=== PATIENT | female | born 1985 | race Caucasian/White ===

== ENCOUNTER 2018-12-06 10:34 | Emergency (ER) | payer OTHER ==
[2018-12-06] MEDS ORDERED: HYDROCODONE/APAP 5/325 MG TAB ONE (11:19)
[2018-12-06] MEDS ORDERED: IBUPROFEN 200 MG TAB PO ONE (11:20)
[2018-12-06] MEDS ORDERED: IBUPROFEN 400 MG TAB ONE (11:20)
--- NOTE | 2018-12-06 12:02 | RAD REPORT ---
EXAM DESCRIPTION: RAD - Foot Right 3 View - 12/06/2018 11:25 am CLINICAL HISTORY: Twisting injury, foot pain COMPARISON: None. FINDINGS: Oblique fracture is present through the distal shaft fifth metatarsal. Articular surface o f the fifth metatarsal head is not involved. There is minimal distraction but no measurable angulatio n deformity. No other fracture changes seen. No other acute bone or joint finding. Soft tissue swelling is present distal lateral right foot. IMPRESSION: Minimally displaced, nonangulated distal right fifth metatarsal fracture.
--- NOTE | 2018-12-06 12:02 | RAD REPORT ---
EXAM DESCRIPTION: RAD - Ankle Right 3 View - 12/06/2018 11:28 am CLINICAL HISTORY: Foot and ankle pain, twisting injury COMPARISON: None. FINDINGS: No fracture, dislocation or periosteal reaction. No joint effusion seen. No joint space na rrowing. No significant soft tissue finding. Fifth metatarsal fracture is separately detailed. IMPRESSION: Negative right ankle
--- NOTE | 2018-12-06 12:03 | RAD REPORT ---
EXAM DESCRIPTION: RAD - Ankle Left 3 View - 12/06/2018 11:29 am CLINICAL HISTORY: Twisting injury, ankle pain COMPARISON: None. FINDINGS: No fracture, dislocation or periosteal reaction. No joint effusion seen. No joint space na rrowing. No soft tissue abnormality. IMPRESSION: Negative left ankle for fracture or other acute finding.
--- NOTE | 2018-12-06 14:19 | EDPHYS ---
Physician Documentation [facility] Name: Toño Sheffield Age: 33 yrs Sex: Female : 1985 Arrival Date: 12/06/2018 Time: 10:39 Bed 14 Private MD: ED Physician Nils Duarte HPI: 12/06 10:55 This 33 yrs old Female presents to ER via Wheelchair with complaints of Fall pm1 Injury. 10:55 The patient presents with pain, that is acute. The complaints affect the left ankle, pm1 right ankle, dorsum of right foot. Onset: The symptoms/episode began/occurred this morning, at 07:00. Context: The problem was sustained at home, resulted from a mis-step by the patient, stairs, The mechanism of injury involved inversion of the affected ankle. The patient is unable to bear weight. Associated signs and symptoms: The patient has no apparent associated signs or symptoms. Modifying factors: The symptoms are alleviated by elevation of extremity, the symptoms are aggravated by weight bearing. Severity of symptoms: in the emergency department the symptoms are unchanged. The patient has experienced similar episodes in the past, a few times, right ankle. Patient with prior right ankle fracture with multiple episodes of rolling ankle after surgery. The patient has not recently seen a physician. Patient walking upstairs and accidentally inverted her right ankle. She tried to compensate for it and then inverted her left ankle. Patient landed on her buttocks. No headache, head injury, LOC, neck pain. Presenting with pain to lateral aspect of both ankles and dorsum of right foot. Historical: - Allergies: 10:49 No Known Allergies; aa5 - PMHx: 10:49 Hypothyroidism; aa5 - PSHx: 10:49 R ankle; ; aa5 - Immunization history: Last tetanus immunization: - up to date. - Ebola Screening: : No symptoms or risks identified at this time. ROS: 10:55 Constitutional: Negative for fever, chills, and weight loss, Eyes: Negative for injury, pm1 pain, redness, and discharge, ENT: Negative for injury, pain, and discharge, Neck: Negative for injury, pain, and swelling, Cardiovascular: Negative for chest pain, palpitations, and edema, Respiratory: Negative for shortness of breath, cough, wheezing, and pleuritic chest pain, Abdomen/GI: Negative for abdominal pain, nausea, vomiting, diarrhea, and constipation, Back: Negative for injury and pain. 10:55 Skin: Negative for injury, rash, and discoloration, Neuro: Negative for headache, weakness, numbness, tingling, and seizure. 10:55 MS/extremity: Positive for pain, of the left ankle, right ankle and dorsum of right foot. Exam: 10:55 Constitutional: This is a well developed, well nourished patient who is awake, alert, pm1 and in no acute distress. Head/Face: Normocephalic, atraumatic. Eyes: Pupils equal round and reactive to light, extra-ocular motions intact. Lids and lashes normal. Conjunctiva and sclera are non-icteric and not injected. Cornea within normal limits. Periorbital areas with no swelling, redness, or edema. ENT: Nares patent. No nasal discharge, no septal abnormalities noted. Tympanic membranes are normal and external auditory canals are clear. Oropharynx with no redness, swelling, or masses, exudates, or evidence of obstruction, uvula midline. Mucous membranes moist. Neck: Trachea midline, no thyromegaly or masses palpated, and no cervical lymphadenopathy. Supple, full range of motion without nuchal rigidity, or vertebral point tenderness. No Meningismus. Chest/axilla: Normal chest wall appearance and motion. Nontender with no deformity. No lesions are appreciated. Cardiovascular: Regular rate and rhythm with a normal S1 and S2. No gallops, murmurs, or rubs. Normal PMI, no JVD. No pulse deficits. Respiratory: Lungs have equal breath sounds bilaterally, clear to auscultation and percussion. No rales, rhonchi or wheezes noted. No increased work of breathing, no retractions or nasal flaring. Abdomen/GI: Soft, non-tender, with normal bowel sounds. No distension or tympany. No guarding or rebound. No evidence of tenderness throughout. Back: No spinal tenderness. No costovertebral tenderness. Full range of motion. Skin: Warm, dry with normal turgor. Normal color with no rashes, no lesions, and no evidence of cellulitis. 10:55 Musculoskeletal/extremity: Extremities: grossly normal except: noted in the dorsum of right foot, lateral aspect of right and left ankle: tenderness, Circulation is intact in all extremities. Sensation intact. 10:55 Neuro: Orientation: is normal, Motor: is normal, moves all fours. Vital Signs: 11:00 BP 131 / 101; Pulse 92; Resp 18; Temp 98.1; Pulse Ox 98% on R/A; Weight 99.79 kg; aj Height 5 ft. 3 in. (160.02 cm); 13:28 BP 132 / 99; Pulse 75; Resp 17; Pulse Ox 99% on R/A; aj 11:00 Body Mass Index 38.97 (99.79 kg, 160.02 cm) aj [place] Coma Score: 11:00 Eye Response: spontaneous(4). Verbal Response: oriented(5). Motor Response: obeys aj commands(6). Total: 15. Trauma Score (Adult): 11:00 Eye Response: spontaneous(1); Verbal Response: oriented(1); Motor Response: obeys aj commands(2); Systolic BP: > 89 mm Hg(4); Respiratory Rate: 10 to 29 per min(4); Ellie Score: 15; Trauma Score: 12 MDM: 10:52 Patient medically screened. pm1 11:02 Data interpreted: Pulse oximetry: on room air. pm1 13:52 ED course: Patient's right ankle/foot posterior splint changed to walking boot since pm1 patient reports right ankle pain is not as bad as left ankle. Patient complaining of bilateral ankle pain and feels unable to apply weight on either ankle. Anticipate that patient will be able to walk on right foot with walking boot after improvement of right ankle sprain. 13:53 Data reviewed: vital signs. Counseling: I had a detailed discussion with the patient pm1 and/or guardian regarding: the historical points, exam findings, and any diagnostic results supporting the discharge/admit diagnosis, radiology results, the need for outpatient follow up, a orthopedic surgeon, to return to the emergency department if symptoms worsen or persist or if there are any questions or concerns that arise at home. 12/06 10:55 Order name: Ankle Left 3 View XRAY; Complete Time: 12:23 pm1 12/06 10:55 Order name: Ankle Right 3 View XRAY; Complete Time: 12:23 pm1 12/06 10:55 Order name: Foot Right 3 View XRAY; Complete Time: 12:23 pm1 12/06 12:38 Order name: Richard wrap-joint: left ankle; Complete Time: 13:55 pm1 12/06 12:38 Order name: Splint - Ankle: Posterior: Right foot and ankle; Complete Time: 13:27 pm1 12/06 12:38 Order name: Misc. Order: Walker; Complete Time: 13:55 pm1 12/06 13:36 Order name: Aircast Ankle Splint; Complete Time: 13:36 aj Administered Medications: 11:12 Drug: [place] 5 mg-325 mg 1 tabs Route: PO; aj 13:27 Follow up: Response: Pain is decreased aj 11:12 Drug: Ibuprofen 600 mg Route: PO; aj 13:27 Follow up: Response: No adverse reaction aj Disposition: 14:59 Co-signature as Attending Physician, Nils Duarte MD. rn Disposition: 12/06/18 14:18 Discharged to Home. Impression: Displaced fracture of fifth metatarsal bone, right foot, Sprain of unspecified ligament of right ankle, Sprain of unspecified ligament of left ankle. - Condition is Stable. - Discharge Instructions: Ankle Sprain, Cast or Splint Care, Adult, How to Use a Walker. - Prescriptions for Tramadol 50 mg Oral Tablet - take 1 tablet by ORAL route every 8 hours As needed as needed; 20 tablet. - Medication Reconciliation Form, Thank You Letter, Prescription Opioid Use form. - Follow up: Emergency Department; When: As needed; Reason: Worsening of condition. Follow up: Private Physician; When: 2 - 3 days; Reason: Recheck today's complaints, Continuance of care, Re-evaluation by your physician. - Problem is new. - Symptoms have improved. Signatures: Dispatcher [employer] Chayito Gaytan RN RN aj Nieto, Roman, MD MD rn Calderon, Audri, RN RN aa5 Huang Tyson, MELISSA BALANCE BRIDGE INSPECTOR pm1 Corrections: (The following items were deleted from the chart) 14:35 14:18 12/06/2018 14:18 Discharged to Home. Impression: Displaced fracture of fifth aj metatarsal bone, right foot; Sprain of unspecified ligament of right ankle; Sprain of unspecified ligament of left ankle. Condition is Stable. Forms are Medication Reconciliation Form, Thank You Letter, Antibiotic Education, Prescription Opioid Use. Follow up: Emergency Department; When: As needed; Reason: Worsening of condition. Follow up: Private Physician; When: 2 - 3 days; Reason: Recheck today's complaints, Continuance of care, Re-evaluation by your physician. Problem is new. Symptoms have improved. pm1
--- NOTE | 2018-12-06 14:19 | ER ---
Nurse's Notes [facility] Name: Toño Sheffield Age: 33 yrs Sex: Female : 1985 Arrival Date: 12/06/2018 Time: 10:39 Bed 14 Private MD: Diagnosis: Displaced fracture of fifth metatarsal bone, right foot;Sprain of unspecified ligament of right ankle;Sprain of unspecified ligament of left ankle Presentation: 12/06 10:49 Presenting complaint: Patient states: "I rolled my right ankle coming down the last aa5 step and I hurt my left ankle again". Pt c/o jamila ankle pain. Denies LOC, denies head injury. 10:49 Transition of care: patient was not received from another setting of care. Onset of aa5 symptoms was November 2018. Risk Assessment: Do you want to hurt yourself or someone else? Patient reports no desire to harm self or others. Initial Sepsis Screen: Does the patient meet any 2 criteria? No. Patient's initial sepsis screen is negative. Does the patient have a suspected source of infection? No. Patient's initial sepsis screen is negative. Care prior to arrival: None. 10:49 Method Of Arrival: Wheelchair aa5 10:49 Acuity: ANTONIA 4 aa5 Historical: - Allergies: 10:49 No Known Allergies; aa5 - PMHx: 10:49 Hypothyroidism; aa5 - PSHx: 10:49 R ankle; ; aa5 - Immunization history: Last tetanus immunization: - up to date. - Ebola Screening: : No symptoms or risks identified at this time. Screenin:00 Abuse screen: Denies threats or abuse. Denies injuries from another. Tuberculosis aj screening: No symptoms or risk factors identified. Primary Survey: 11:00 NO uncontrolled hemorrhage observed. Breathing/Chest: Respiratory pattern: regular, aj Respiratory effort: spontaneous, unlabored. Circulation: Skin color: pink, Skin temperature: warm, dry. Disability Alert. 12:00 Exposure/Environment: All clothing and personal items were removed. Forensic evidence aj collection is not deemed to be indicated at this time. Items placed in patient belonging bag. Reassessment Airway Airway Patent Breathing/Chest Respiratory pattern Regular Respiratory effort Spontaneous Unlabored Circulation Color [place] Disability Alert. Assessment: 11:00 General: Appears in no apparent distress. comfortable, Behavior is calm, cooperative, aj appropriate for age. Pain: Complains of pain in right ankle and left lateral ankle. Neuro: Level of Consciousness is awake, alert, obeys commands, Oriented to person, place, time, situation, Appropriate for age. Respiratory: Airway is patent Respiratory effort is even, unlabored, Respiratory pattern is regular, symmetrical. Derm: Skin is intact, is healthy with good turgor, Skin is pink, warm \\T\\ dry. normal. Musculoskeletal: Reports pain in left lateral ankle and right ankle. Vital Signs: 11:00 BP 131 / 101; Pulse 92; Resp 18; Temp 98.1; Pulse Ox 98% on R/A; Weight 99.79 kg; aj Height 5 ft. 3 in. (160.02 cm); 13:28 BP 132 / 99; Pulse 75; Resp 17; Pulse Ox 99% on R/A; aj 11:00 Body Mass Index 38.97 (99.79 kg, 160.02 cm) aj [place] Coma Score: 11:00 Eye Response: spontaneous(4). Verbal Response: oriented(5). Motor Response: obeys aj commands(6). Total: 15. Trauma Score (Adult): 11:00 Eye Response: spontaneous(1); Verbal Response: oriented(1); Motor Response: obeys aj commands(2); Systolic BP: > 89 mm Hg(4); Respiratory Rate: 10 to 29 per min(4); [place] Score: 15; Trauma Score: 12 ED Course: 10:39 Patient arrived in ED. mr 10:49 Arm band placed on Patient placed in an exam room, on a stretcher. aa5 10:51 Huang Tyson NP is PHCP. pm1 10:51 Nils Duarte MD is Attending Physician. pm1 10:54 Triage completed. aa5 10:59 Chayito Epperson, DERIC is Primary Nurse. aj 11:00 Patient has correct armband on for positive identification. aj 11:00 Patient maintains SpO2 saturation greater than 95% on room air. aj 11:22 X-ray completed. Patient moved to radiology via stretcher. jb2 11:23 Ankle Left 3 View XRAY In Process Unspecified. EDMS 11:23 Ankle Right 3 View XRAY In Process Unspecified. EDMS 11:23 Foot Right 3 View XRAY In Process Unspecified. EDMS 11:37 X-ray completed. Patient tolerated procedure well. Patient moved back from radiology. [facility] 13:46 No provider procedures requiring assistance completed. Orthoglass splint: Posterior aj short lleg splint applied on right leg. Completed by Kaylee. 13:47 Richard wrap to left ankle Orthoglass splint: Posterior short lleg splint applied on right mh5 leg. walker. 13:55 aircast. 5 14:34 Patient did not have IV access during this emergency room visit. aj Administered Medications: 11:12 Drug: [place] 5 mg-325 mg 1 tabs Route: PO; aj 13:27 Follow up: Response: Pain is decreased aj 11:12 Drug: Ibuprofen 600 mg Route: PO; aj 13:27 Follow up: Response: No adverse reaction aj Intake: 11:00 PO: 0ml; Total: 0ml. aj Outcome: 14:18 Discharge ordered by MD. pm1 14:30 Discharged to home via wheelchair, with family. 14:30 Condition: good 14:30 Discharge instructions given to patient, Instructed on discharge instructions, follow up and referral plans. medication usage, Demonstrated understanding of instructions, follow-up care, medications, Prescriptions given X 1. 14:35 ProviderPatient's length of stay extended due to aj 14:35 Patient left the ED. aj Signatures: Dispatcher [employer] EDMS Chayito Epperson RN June Sahu mr AbdulYon Neetu Davis 1 Frances Maddox RN RN aa5 Huang Tyson, MELISSA FLOOR COVERINGS SALESPERSON pm1 Chelsea Velez 5 Corrections: (The following items were deleted from the chart) 10:55 10:49 Presenting complaint: Patient states: "I rolled my right ankle coming down the aa5 last step and I hurt my left ankle again". Pt c/o jamila ankle pain. aa5
== END 2018-12-06 14:35 | disposition home or self-care (01) ==
LOC: ER 10:34
PROC: 2W3QX1Z Immobilization of Right Lower Leg using Splint (ICD-10-PCS; principal; 2018-12-06)
DX: S92.351A Displaced fracture of fifth metatarsal bone, right foot, initial encounter for closed fracture (principal); S93.402A Sprain of unspecified ligament of left ankle, initial encounter; S93.401A Sprain of unspecified ligament of right ankle, initial encounter; W10.9XXA Fall (on) (from) unspecified stairs and steps, initial encounter; Y93.01 Activity, walking, marching and hiking; Y92.008 Other place in unspecified non-institutional (private) residence as the place of occurrence of the external cause
CPT/HCPCS: 99284